=== PATIENT | male | born 1950 ===

== ENCOUNTER 2024-10-19 08:53 | Day surgery (SDC) | payer MEDICARE, OTHER ==
[~2024-10-19] VITALS: Ht 177.8 cm; Wt 66.7 kg
[2024-10-19] VITALS (13 sets, daily range): BP systolic 100–194; BP diastolic 54–109
[2024-10-19] MEDS ORDERED: Vitamin D1000 UNI1 PO (09:42)
[2024-10-19] MEDS ORDERED: CLOP75 PO (09:43)
[2024-10-19] MEDS ORDERED: LEVSOD75 PO (09:43)
[2024-10-19] MEDS ORDERED: LOSA50 PO (09:43)
[2024-10-19 09:44] LABS: BASOPHILS ABSOLUTE AUTO 0.11 K/mm3 (0.00-0.23); BASOPHILS PERCENT AUTO 1 % (0-2); EOSINOPHILS ABSOLUTE AUTO 0.55 K/mm3 (0.00-0.68); EOSINOPHILS PERCENT AUTO 5 % (0-6); Hematocrit 47.7 % (37.0-53.0); Hemoglobin 15.6 g/dL (13.5-17.5); IMMATURE GRAN ABSOLUTE AUTO 0.03 K/mm3 (0.00-0.10); IMMATURE GRAN PERCENT AUTO 0 % (0-1); LYMPHOCYTES PERCENT AUTO 19 % (21-46); MONOCYTES ABSOLUTE AUTO 0.67 K/mm3 (0.16-1.47); MONOCYTES PERCENT AUTO 6 % (4-13); Mean Corpuscular HGB 30.1 pg (26.0-34.0); Mean Corpuscular HGB Conc 32.7 g/dL (31.5-36.5); Mean Corpuscular Volume 92 fL (80-100); NEUTROPHILS ABSOLUTE AUTO 8.27 K/mm3 (1.96-9.15); NEUTROPHILS PERCENT AUTO 70 % (41-73); Platelet Count 694 K/mm3 (150-400); RDW Coefficient Variation 15.3 % (11.7-14.2); RDW Standard Deviation 52.1 fL (35.1-46.3); Red Blood Cell Count 5.18 M/mm3 (4.30-5.90); White Blood Cell Count 11.83 K/mm3 (4.00-11.30)
[2024-10-19] MEDS ORDERED: NIFE60ER PO (09:44)
[2024-10-19] MEDS ORDERED: TAMS.4ER PO (09:44)
[2024-10-19] MEDS ORDERED: OMEP20ER PO (09:44)
[2024-10-19 10:02] LABS: International Normalized Ratio 1.05; Prothrombin Time Results 11.2 Sec (9.7-11.5)
[2024-10-19 10:08] LABS: Albumin/Globulin Ratio 1.2 (0.8-1.8); Bilirubin, Total 0.6 mg/dL (0.1-1.0); Globulin, Blood 3.2 g/dL (2.2-4.0); Potassium, Blood 4.3 mmol/L (3.5-5.5); Total Protein, Blood 7.2 g/dL (6.4-8.2)
[2024-10-19] MEDS ORDERED: NS 1,000 ML IV ONE ×2 (13:09→13:44)
[2024-10-19] MEDS ORDERED: Heparin Sodium 1000 Units/ML 10ML MDV ONE (13:09)
[2024-10-19] MEDS ORDERED: NS 250 ML IV ONE (13:09)
[2024-10-19] MEDS ORDERED: Midazolam HCl 1MG / ML 2ML Vial ONE ×2 (13:44→14:12)
[2024-10-19] MEDS ORDERED: FentaNYL Citrate 50 MCG/ML 2 ML Injection ONE ×3 (13:44→17:02)
[2024-10-19] MEDS ORDERED: NS 100 ML IV ONE (14:02)
[2024-10-19] MEDS ORDERED: HydrALAZINE HCl 20 MG / ML 1ML Vial ONE (14:39)
[2024-10-19] MEDS ORDERED: Labetalol HCL 5 MG/ML 4ML Injection (Single Dose) ONE (14:47)
[2024-10-19] MEDS ORDERED: Protamine Sulfate 50 MG Amp ONE (15:30)
--- NOTE | 2024-10-19 16:14 | NUR ---
pt back to recovery from lab. pt a&o. segun lowry holding pressure on r groin. l groin site soft and non-tender per pt. no bleeding noted.
--- NOTE | 2024-10-19 16:24 | NUR ---
r groin site soft and non-tender epr pt. no bleeding noted.
--- NOTE | 2024-10-19 16:25 | NUR ---
dr byrnes at [facility].
--- NOTE | 2024-10-19 16:37 | NUR ---
bilat groin sites soft and non-tender per pt. no bleeding noted to either site.
--- NOTE | 2024-10-19 17:11 | NUR ---
pt co of pain in l shoulder. pt readjusted in bed w/o relief. pt given 25mcg of fentanyl iv for pain per dr byrnes. bilat groin sites soft and non-tender per pt. no bleeding noted.
--- NOTE | 2024-10-19 17:16 | NUR ---
hospitalist at bedside.
[2024-10-19] MEDS ORDERED: Acetaminophen 500 MG Tab PO PRN (17:40)
[2024-10-19] MEDS ORDERED: OxyCODONE HCL 5 MG TAB PO PRN (17:40)
[2024-10-19] MEDS ORDERED: Labetalol HCL 5 MG/ML 4ML Injection (Single Dose) IV PRN (17:50)
--- NOTE | 2024-10-19 17:55 | NUR ---
bilat dp and pt pulses present
--- NOTE | 2024-10-19 17:58 | NUR ---
pt taken to [facility] via [facility]
[2024-10-19] MEDS ORDERED: Tamsulosin HCl 0.4 MG Cap PO SCH (21:00)
[2024-10-19] MEDS ORDERED: Docusate Sodium/Senna 1 Tab PO SCH (21:00)
[2024-10-20] MEDS ORDERED: Levothyroxine Sodium 0.075 MG Tab PO SCH (06:00)
[2024-10-20] MEDS ORDERED: Omeprazole 20 MG CapCR PO SCH (06:00)
[2024-10-20] MEDS ORDERED: Enoxaparin 40 MG/0.4 ML SYR SC SCH (09:00)
[2024-10-20] MEDS ORDERED: Clopidogrel Bisulfate 75 MG Tab PO SCH (09:00)
[2024-10-20] MEDS ORDERED: NIFEdipine 60 MG TabCR PO SCH (09:00)
[2024-10-20] MEDS ORDERED: Losartan Potassium 50 MG Tab PO SCH (09:00)
[2024-10-20] MEDS ORDERED: ACET500 PO (10:19)
[2024-10-20] MEDS ORDERED: PANT20 PO (10:20)
[2024-10-20] MEDS ORDERED: Zocor40 MG PO (10:20)
== END 2024-10-19 23:25 | disposition home or self-care (01) ==
LOC: MHTC 08:53
PROVIDERS: Student in an Organized Health Care Education/Training Program
DX: I73.9 Peripheral vascular disease, unspecified (principal); L98.499 Non-pressure chronic ulcer of skin of other sites with unspecified severity; E78.5 Hyperlipidemia, unspecified; F17.210 Nicotine dependence, cigarettes, uncomplicated; Z79.02 Long term (current) use of antithrombotics/antiplatelets; Z79.899 Other long term (current) drug therapy
CPT/HCPCS: 36140; 36200; 37225; 75625; 75710; 75716; 76937; 80053; 85025; 85610; 99152; 99153; A9270; C1714; C1760; C1769; C1884; C1887; C1894; J0360; J1644; J2250; J2720; J3010; J7030; J7050; Q9967

== ENCOUNTER 2024-10-19 16:59 | Observation (INO) | payer MEDICARE, OTHER ==
[~2024-10-19] VITALS: Ht 177.8 cm; Wt 63.7 kg
[~2024-10-19 16:59] MED LIST: CLOP75 PO; LEVSOD75 PO; LOSA50 PO; NIFE60ER PO; OMEP20ER PO; TAMS.4ER PO; Vitamin D1000 UNI1 PO
[2024-10-19 17:57] VITALS: BP 114/94
--- NOTE | 2024-10-19 18:43 | NUR ---
PT ARRIVED IN THE UNIT VIA GURNEY TRANFERRED TO PCU BED VIA SLIDER SHEET. PT IS HERE POST REVASC, TO STAY OVER THE NIGHT AND DISCHARGE IN AM. PT [place] 2 GROIN SITES DRESSING CDI, NO HEMATOMA NOTED AROUND THE SITE. PEDAL PULSES VIA DOPPLER. PT DENIES PAIN/DISCOMFORT. VITALS HRR SR 60'S, SBP 115'S, SATS ABOVE 95% ON RA, AFEBRILE. PT PLEASANT AND COOPERATIVE WITH CARES ALERT AND ORIENTED X4. NO ISSUES REPORTED AT THIS TIME, WILL REPORT TO ONCOMING SHIFT
[2024-10-19 19:17] VITALS: BP 151/61
[2024-10-19 19:30] VITALS: BP 163/84
[2024-10-19 20:00] VITALS: BP 115/97
[2024-10-19] MEDS ORDERED: OxyCODONE HCL 5 MG TAB PO PRN (20:15)
[2024-10-19] MEDS ORDERED: Acetaminophen 500 MG Tab PO PRN (20:15)
[2024-10-19] MEDS ORDERED: Labetalol HCL 5 MG/ML 4ML Injection (Single Dose) IV PRN (20:30)
[2024-10-19] MEDS ORDERED: Docusate Sodium/Senna 1 Tab PO SCH (21:00)
[2024-10-19] MEDS ORDERED: Tamsulosin HCl 0.4 MG Cap PO SCH (21:00)
[2024-10-20] VITALS: BP 151/85
[2024-10-20 04:00] VITALS: BP 138/68
[2024-10-20 04:44] LABS: BASOPHILS ABSOLUTE AUTO 0.11 K/mm3 (0.00-0.23); BASOPHILS PERCENT AUTO 1 % (0-2); EOSINOPHILS ABSOLUTE AUTO 0.51 K/mm3 (0.00-0.68); EOSINOPHILS PERCENT AUTO 4 % (0-6); Hematocrit 45.2 % (37.0-53.0); Hemoglobin 15.2 g/dL (13.5-17.5); IMMATURE GRAN ABSOLUTE AUTO 0.05 K/mm3 (0.00-0.10); IMMATURE GRAN PERCENT AUTO 0 % (0-1); LYMPHOCYTES ABSOLUTE AUTO 1.61 K/mm3 (0.84-5.20); LYMPHOCYTES PERCENT AUTO 14 % (21-46); MONOCYTES ABSOLUTE AUTO 0.62 K/mm3 (0.16-1.47); MONOCYTES PERCENT AUTO 5 % (4-13); Mean Corpuscular HGB 30.5 pg (26.0-34.0); Mean Corpuscular HGB Conc 33.6 g/dL (31.5-36.5); Mean Corpuscular Volume 91 fL (80-100); Mean Platelet Volume 10.3 fL (9.1-12.4); NEUTROPHILS ABSOLUTE AUTO 9.05 K/mm3 (1.96-9.15); NEUTROPHILS PERCENT AUTO 76 % (41-73); Platelet Count 590 K/mm3 (150-400); RDW Coefficient Variation 15.2 % (11.7-14.2); RDW Standard Deviation 50.9 fL (35.1-46.3); Red Blood Cell Count 4.98 M/mm3 (4.30-5.90); White Blood Cell Count 11.95 K/mm3 (4.00-11.30)
[2024-10-20 05:06] LABS: Albumin, Blood 3.4 g/dL (3.4-5.0); Albumin/Globulin Ratio 1.2 (0.8-1.8); Bilirubin, Total 0.6 mg/dL (0.1-1.0); Bun/Creatinine Ratio 18.9 (12.0-20.0); Calcium, Blood 8.3 mg/dL (8.5-10.1); Creatinine, Blood 0.95 mg/dL (0.60-1.20); Globulin, Blood 2.8 g/dL (2.2-4.0); Potassium, Blood 4.1 mmol/L (3.5-5.5); Total Protein, Blood 6.2 g/dL (6.4-8.2)
[2024-10-20] MEDS ORDERED: Omeprazole 20 MG CapCR PO SCH (06:00)
[2024-10-20] MEDS ORDERED: Levothyroxine Sodium 0.075 MG Tab PO SCH (06:00)
--- NOTE | 2024-10-20 06:10 | NUR ---
SHIFT SUMMARY PT ALERT AND ORIENTED X4 FOLLOWS COMMANDS, ABLE TO MAKE NEEDS KNOWN, AFEBRILE, SR 60-80s, BP STABLE, MAP >65, REMAINS ON RA WITH SPO2 90%, VOIDS WITHOUT DIFFICULTY IN URINAL AT BEDSIDE, HEMANTH GROIN ACCESS SITES FROM IR DRESSING CDI, NO BLEEDING, HEMATOMA OR BRUISING NOTED, PEDAL PULSES PRESENT,PT FLAT IN BED ON BEDREST UNTIL 2145 C/O PAIN X2 THIS SHIFT AND MEDICATED WITH OXYCODONE 5 MG PO PER EMAR. PIV TO LEFT UPPER ARM PATENT AND CLAMPED, SIDE RAILS UP X2, BED ALARM MANAGER BAKERY LIGHT IN REACH
[2024-10-20 07:16] VITALS: BP 144/79
[2024-10-20] MEDS ORDERED: Losartan Potassium 50 MG Tab PO SCH (09:00)
[2024-10-20] MEDS ORDERED: Enoxaparin 40 MG/0.4 ML SYR SC SCH (09:00)
[2024-10-20] MEDS ORDERED: NIFEdipine 60 MG TabCR PO SCH (09:00)
[2024-10-20] MEDS ORDERED: Clopidogrel Bisulfate 75 MG Tab PO SCH (09:00)
[2024-10-20] MEDS ORDERED: ACET500 PO (10:19)
[2024-10-20] MEDS ORDERED: Zocor40 MG PO (10:20)
[2024-10-20] MEDS ORDERED: PANT20 PO (10:20)
[2024-10-20 12:46] VITALS: BP 125/61
[2024-10-20 14:45] VITALS: BP 111/59
--- NOTE | 2024-10-20 14:57 | NUR ---
DISCHARGE NOTE: PT DISCHARGED TO HOME VIA TAXI. PT NOT IN ANY DISTERSS AT THIS TIME. PT WAS GIVEN WRITTEN AND VERBAL DC INSTRUCTIONS AND WAS INSTRUCTED TO COME BACK TO THIS FACILITY FOR WORSENING SYMPTOMS. PT DENIES ANY QUESTIONS OR CONCERNS AT THIS TIME. PTS BELONGINGS WERE COLLECTED AND TAKEN HOME.
== END 2024-10-20 14:59 | disposition home or self-care (01) ==
LOC: PCU 16:59
PROVIDERS: Student in an Organized Health Care Education/Training Program; ADMIT Internal Medicine
DX: I73.9 Peripheral vascular disease, unspecified (principal); Z98.62 Peripheral vascular angioplasty status; I16.0 Hypertensive urgency; E03.9 Hypothyroidism, unspecified; I10 Essential (primary) hypertension; K21.9 Gastro-esophageal reflux disease without esophagitis; N40.0 Benign prostatic hyperplasia without lower urinary tract symptoms; F17.210 Nicotine dependence, cigarettes, uncomplicated; Z79.890 Hormone replacement therapy; Z79.899 Other long term (current) drug therapy; Z79.02 Long term (current) use of antithrombotics/antiplatelets
CPT/HCPCS: 76937; 80053; 85025; 93926; 99152; 99153; A9270; C1714; C1760; C1769; C1884; C1887; C1894; G0378; J1650; Q9967

== ENCOUNTER 2024-11-02 08:22 | Day surgery (SDC) | payer MEDICARE ==
[~2024-11-02] VITALS: Ht 177.8 cm; Wt 66.7 kg
[2024-11-02] VITALS (9 sets, daily range): BP systolic 140–176; BP diastolic 71–96
[~2024-11-02 08:22] MED LIST changes: +ACET500 PO; +PANT20 PO; +Zocor40 MG PO
[2024-11-02] MEDS ORDERED: NS 250 ML IV ONE (08:39)
[2024-11-02] MEDS ORDERED: Heparin Sodium 1000 Units/ML 10ML MDV ONE ×2 (08:39→09:22)
[2024-11-02] MEDS ORDERED: NS 100 ML IV ONE (08:39)
[2024-11-02] MEDS ORDERED: NS 1,000 ML IV ONE ×2 (08:39→09:22)
[2024-11-02 09:06] LABS: BASOPHILS ABSOLUTE AUTO 0.09 K/mm3 (0.00-0.23); BASOPHILS PERCENT AUTO 1 % (0-2); EOSINOPHILS PERCENT AUTO 6 % (0-6); Hematocrit 42.4 % (37.0-53.0); IMMATURE GRAN ABSOLUTE AUTO 0.07 K/mm3 (0.00-0.10); IMMATURE GRAN PERCENT AUTO 1 % (0-1); LYMPHOCYTES ABSOLUTE AUTO 2.15 K/mm3 (0.84-5.20); LYMPHOCYTES PERCENT AUTO 19 % (21-46); MONOCYTES ABSOLUTE AUTO 0.68 K/mm3 (0.16-1.47); MONOCYTES PERCENT AUTO 6 % (4-13); Mean Corpuscular HGB 30.4 pg (26.0-34.0); Mean Corpuscular Volume 92 fL (80-100); Mean Platelet Volume 9.8 fL (9.1-12.4); NEUTROPHILS ABSOLUTE AUTO 7.89 K/mm3 (1.96-9.15); NEUTROPHILS PERCENT AUTO 68 % (41-73); Platelet Count 676 K/mm3 (150-400); RDW Coefficient Variation 14.8 % (11.7-14.2); RDW Standard Deviation 50.4 fL (35.1-46.3); Red Blood Cell Count 4.61 M/mm3 (4.30-5.90); White Blood Cell Count 11.58 K/mm3 (4.00-11.30)
[2024-11-02 09:15] LABS: International Normalized Ratio 1.01; Prothrombin Time Results 10.8 Sec (9.7-11.5)
[2024-11-02] MEDS ORDERED: FentaNYL Citrate 50 MCG/ML 2 ML Injection ONE (09:22)
[2024-11-02] MEDS ORDERED: Midazolam HCl 1MG / ML 2ML Vial ONE (09:22)
[2024-11-02 09:29] LABS: Albumin, Blood 3.3 g/dL (3.4-5.0); Albumin/Globulin Ratio 1.1 (0.8-1.8); Bilirubin, Total 0.3 mg/dL (0.1-1.0); Bun/Creatinine Ratio 24.8 (12.0-20.0); Calcium, Blood 8.5 mg/dL (8.5-10.1); Creatinine, Blood 0.89 mg/dL (0.60-1.20); Globulin, Blood 2.9 g/dL (2.2-4.0); Total Protein, Blood 6.2 g/dL (6.4-8.2)
[2024-11-02] MEDS ORDERED: Verapamil HCL 2.5 MG/ML 2ML Injection ONE (10:17)
[2024-11-02] MEDS ORDERED: Nitroglycerin 2 MG/20 ML BTL ONE (10:17)
--- NOTE | 2024-11-02 11:43 | NUR ---
PT returns to recovery room at this time. Pt alert and oriented, currently laying flat in the bed. Mynx closure device to left groin, site wnl, no oozing no hematoma. Pt. has access site to left PT as well, site wnl, no oozing no hematoma. manual pressure to site. Pt vss. Pt given urinal to void, voided 600cc of clear yellow fluid.
--- NOTE | 2024-11-02 12:14 | NUR ---
pt resting quietly in bed, pillows adjusted. Site assessed and remains unchanged from initial assessment.
--- NOTE | 2024-11-02 12:37 | NUR ---
MD PRESENT AT BEDSIDE DISCUSSING PROCEDURE RESULTS
--- NOTE | 2024-11-02 13:30 | NUR ---
HOB ELEVATED TO 30 DEGREES. LEFT GROIN SITE REMAINS WNL, NO OOZING OR SWELLING. FLUIDS PROVIDED. PT. PT SITE REMAINS WNL WELL.
--- NOTE | 2024-11-02 14:00 | NUR ---
PT STOOD AT BEDSIDE, UP TO BATHROOM. NO OOZING NO HEMATOMA NOTED TO SITE. LEFT PT SITE REMAINS STABLE WELL. PT ABLE TO GET SELF DRSSED WITH OUT DIFFICULTY. IV REMOVED. DISCHARGE INSTRUCTIONS REVIEWED IN DETAIL. NO FURTHER QUESTIONS FROM PT. PLAN FOR [facility] TO PICK PT UP AT 1430 FOR TRANPORT BACK TO [place].
--- NOTE | 2024-11-02 14:29 | NUR ---
PT TAKEN TO EXIT, VOLUNTEER TO WAIT WITH PT FOR RIDE. PT. SITES CHECKED PRIOR TO DISCHARGE WITH NO CHANGES TO SITES. PT DISCHARGED WITH SNACKS FOR THE ROAD.
== END 2024-11-02 14:30 | disposition home or self-care (01) ==
LOC: MHTC 08:22
PROVIDERS: Student in an Organized Health Care Education/Training Program
DX: I70.223 Atherosclerosis of native arteries of extremities with rest pain, bilateral legs (principal); L98.499 Non-pressure chronic ulcer of skin of other sites with unspecified severity; L97.518 Non-pressure chronic ulcer of other part of right foot with other specified severity; E78.3 Hyperchylomicronemia; F17.210 Nicotine dependence, cigarettes, uncomplicated
CPT/HCPCS: 36140; 37225; 37252; 75710; 76937; 80053; 85025; 85610; 99152; 99153; C1714; C1725; C1753; C1760; C1769; C1884; C1887; C1894; J1644; J2250; J3010; J7030; J7050; Q9967